=== PATIENT | male | born 1970 | race Caucasian/White ===

== ENCOUNTER 2020-08-11 21:06 | Emergency (ER) | payer OTHER ==
[2020-08-11] MEDS ORDERED: Ondansetron ODT 4 MG TAB ONE (21:36)
[2020-08-11] MEDS ORDERED: CEFAZOLIN 1 GM VIAL ONE (21:36)
[2020-08-11] MEDS ORDERED: Morphine 4 MG/ML VIAL ONE (21:36)
[2020-08-11] MEDS ORDERED: Sterile Water 10 ML ONE (21:36)
[2020-08-11] MEDS ORDERED: HYDROcodone/Acetaminophen 5/325 mg Tablet ONE (22:17)
== END 2020-08-11 22:26 | disposition home or self-care (01) ==
LOC: CSHERS 21:06
DX: S06.0X0A Concussion without loss of consciousness, initial encounter (principal); S01.01XA Laceration without foreign body of scalp, initial encounter; E78.5 Hyperlipidemia, unspecified; I10 Essential (primary) hypertension; F17.220 Nicotine dependence, chewing tobacco, uncomplicated; W22.8XXA Striking against or struck by other objects, initial encounter
CPT/HCPCS: 12002; 70450; 96372; J0690; J2270; Q0162

== ENCOUNTER 2020-08-19 10:17 | Emergency (ER) | payer OTHER | END 2020-08-19 10:47 | disposition home or self-care (01) | LOC: CSHERS 10:17 | DX: S01.01XD Laceration without foreign body of scalp, subsequent encounter (principal); E78.5 Hyperlipidemia, unspecified; I10 Essential (primary) hypertension; F17.220 Nicotine dependence, chewing tobacco, uncomplicated ==